=== PATIENT | female | born 1960 | race Hispanic/Latino ===

== ENCOUNTER 2018-09-26 13:11 | Emergency (ER) | payer MEDICARE ==
[2018-09-26 13:14] VITALS: BMI 31.1
[2018-09-26 13:46] VITALS: BP 165/87; PULSE 84; RESP 18; TEMP 98.6; O2SAT 99
--- NOTE | 2018-09-26 13:47 | ED PDOC ---
Arrival/HPI - General Historian: Patient - History of Present Illness Narrative History of Present Illness (Text): 09/26/18 13:42 Patient is a 58yo F with PMH of MS presenting to ED with anxiety for the past week. She reports feeling anxious with associated palpitations that are intermittent for 1 week. She denies previous history of psych issues. She reports poor quality of sleep over the past week due to loud construction near her house, which has been making her anxious. She denies chest pain, shortness of breath, loss of consciousness, blurry vision, sweating, or headache. She denies any previous cardiac history. She denies slurred speech, facial drooping, or focal weakness. She reports intermittent numbness in her hands b/l that she attributes to MS. Patient sees Dr. Levin, neurology, as her PMD. She denies fever, chills, nausea, vomiting, abdominal pain, diarrhea, or dysuria. She denies any suicidal or homicidal ideation. Time/Duration: 1 week Symptom Onset: Gradual Symptom Course: Intermittent <Steve Villalobos - Last Filed: 09/26/18 14:42> <Laure Kaba - Last Filed: 09/26/18 14:55> - General Chief Complaint: Anxiety Time Seen by Provider: 09/26/18 13:13 Past Medical History - Infectious Disease Hx of Infectious Diseases: None - Reproductive Menopause: Yes - Cardiac Hx Cardiac Disorders: No - Pulmonary Hx Respiratory Disorders: No - Neurological Hx Neurological Disorder: Yes Hx Multiple Sclerosis: Yes - HEENT Hx HEENT Disorder: No - Renal Hx Renal Disorder: No - Endocrine/Metabolic Hx Endocrine Disorders: No - Hematological/Oncological Hx Blood Disorders: No - Integumentary Hx Dermatological Disorder: No - Musculoskeletal/Rheumatological Hx Musculoskeletal Disorders: No - Gastrointestinal Hx Gastrointestinal Disorders: No - Genitourinary/Gynecological Hx Genitourinary Disorders: No - Psychiatric Hx Psychophysiologic Disorder: Yes Hx Anxiety: Yes Hx Substance Use: No - Surgical History Other/Comment: lump removed from back of neck - Anesthesia Hx Anesthesia: Yes Hx Anesthesia Reactions: No Hx Malignant Hyperthermia: No <Steve Villalobos - Last Filed: 09/26/18 14:42> Family/Social History Family/Social History: Diabetes, CAD/VA Smoking Status: Never Smoked Hx Alcohol Use: No Hx Substance Use: No <Steve Villalobos - Last Filed: 09/26/18 14:42> Allergies/Home Meds <Steve Villalobos - Last Filed: 09/26/18 14:42> <Laure Kaba - Last Filed: 09/26/18 14:55> Allergies/Adverse Reactions: Allergies No Known Allergies Allergy (Verified 09/26/18 13:13) Review of Systems - Review of Systems Constitutional: Normal. absent: Fatigue, Fevers Eyes: absent: Vision Changes ENT: Normal Respiratory: Normal. absent: SOB Cardiovascular: Palpitations. absent: Chest Pain, Syncope Gastrointestinal: Normal. absent: Abdominal Pain, Constipation, Diarrhea, Nausea, Vomiting Genitourinary Female: Normal. absent: Dysuria Musculoskeletal: Normal Skin: Normal Neurological: absent: Dizziness, Focal Weakness, Speech Changes, Facial Droop, Seizure Endocrine: absent: Diaphoresis Psychiatric: Anxiety. absent: Suicidal Ideation <Steve Villalobos - Last Filed: 09/26/18 14:42> Physical Exam Vital Signs Reviewed: Yes Temperature: Afebrile Blood Pressure: Hypertensive Pulse: Regular Respiratory Rate: Normal Appearance: Positive for: Well-Appearing, Non-Toxic, Comfortable Pain Distress: None Mental Status: Positive for: Alert and Oriented X 3 - Systems Exam Head: Present: Atraumatic, Normocephalic Pupils: Present: PERRL Extroacular Muscles: Present: EOMI Conjunctiva: Present: Normal Mouth: Present: Moist Mucous Membranes Neck: Present: Normal Range of Motion Respiratory/Chest: Present: Clear to Auscultation, Good Air Exchange. No: Respiratory Distress, Accessory Muscle Use, Wheezes, Rales, Rhonchi Cardiovascular: Present: Regular Rate and Rhythm, Normal S1, S2. No: Murmurs Abdomen: Present: Normal Bowel Sounds. No: Tenderness, Distention, Peritoneal Signs Upper Extremity: Present: Normal Inspection, Norm 2-Pt Discrimination. No: Cyanosis, Edema Lower Extremity: Present: Normal Inspection, Normal ROM. No: Edema Neurological: Present: GCS=15, CN II-XII Intact, Speech Normal, Motor Func Grossly Intact, Normal Sensory Function Skin: Present: Normal Color. No: Dry, Rashes Psychiatric: Present: Alert, Oriented x 3, Normal Insight, Normal Concentration, Anxious. No: Agitated, Depressed Mood, Suicidal Ideation, Homicidal Ideation <Steve Villalobos - Last Filed: 09/26/18 14:42> Vital Signs Temp Pulse Resp BP Pulse Ox 09/26/18 13:45 98.6 F 84 18 165/87 H 99 <Juan LuistrevaLaure Andreas - Last Filed: 09/26/18 14:55> Medical Decision Making ED Course and Treatment: 09/26/18 13:59 Patient evaluated by psych and cleared to follow up as outpatient as needed. 09/26/18 14:21 Labs reviewed, UDS +cannabinoids EKG NSR @79bpm - RAD Interpretation Radiology Orders: 09/26/18 13:39 CHEST PORTABLE [RAD] Stat <Steve Villalobos - Last Filed: 09/26/18 14:42> ED Course and Treatment: 09/26/18 14:15 Patient seen by resident and then evaluated by me. Complaining of "getting excited" due to construction in her apartment building. She reports that she has been smelling fumes and "inhaling dust" x weeks and this is giving her intermittent palpitations. Reports that the construction is making her very anxious. Reports that she does not have palpitations when away from the construction. Denies chest pain. Denies shortness of breath. EKG shows NSR at 79bpm with normal intervals and no st changes. Cxray negative. labs, including thyroid studies and troponin WNL. Aware of need to follow-up for hematuria. 09/26/18 14:53 - Lab Interpretations Lab Results: Total Bilirubin 0.4 mg/dL (0.2-1.3) 09/26/18 13:35 AST 29 U/L (14-36) 09/26/18 13:35 ALT 37 U/L (7-56) 09/26/18 13:35 Alkaline Phosphatase 72 U/L (38-126) 09/26/18 13:35 Total Protein 8.4 g/dL (5.8-8.3) H 09/26/18 13:35 Albumin 4.6 g/dL (3.0-4.8) 09/26/18 13:35 Globulin 3.9 gm/dL 09/26/18 13:35 Albumin/Globulin Ratio 1.2 (1.1-1.8) 09/26/18 13:35 Urine Color Yellow (YELLOW) 09/26/18 13:30 Urine Appearance Clear (CLEAR) 09/26/18 13:30 Urine pH 7.0 (4.7-8.0) 09/26/18 13:30 Ur Specific Ida <= 1.005 (1.005-1.035) 09/26/18 13:30 Urine Protein Negative mg/dL (<30 mg/dL) 09/26/18 13:30 Urine Glucose (UA) Negative mg/dL (NEGATIVE) 09/26/18 13:30 Urine Ketones Negative mg/dL (NEGATIVE) 09/26/18 13:30 Urine Blood Small (NEGATIVE) H 09/26/18 13:30 Urine Nitrate Negative (NEGATIVE) 09/26/18 13:30 Urine Bilirubin Negative (NEGATIVE) 09/26/18 13:30 Urine Urobilinogen 0.2 E.U./dL (<1 E.U./dL) 09/26/18 13:30 Ur Leukocyte Esterase Negative Nyasia/uL (NEGATIVE) 09/26/18 13:30 Urine RBC 0 - 2 /hpf (0-2) 09/26/18 13:30 Urine WBC 0 - 2 /hpf (0-6) 09/26/18 13:30 Ur Epithelial Cells 1 - 3 /hpf (0-5) 09/26/18 13:30 Urine Bacteria Small /hpf (NONE) 09/26/18 13:30 - RAD Interpretation Radiology Orders: 09/26/18 13:39 CHEST PORTABLE [RAD] Stat <Laure Kaba - Last Filed: 09/26/18 14:55> Disposition/Present on Arrival - Present on Arrival Any Indicators Present on Arrival: No History of DVT/PE: No History of Uncontrolled Diabetes: No Urinary Catheter: No History of Decub. Ulcer: No History Surgical Site Infection Following: None - Disposition Have Diagnosis and Disposition been Completed?: Yes Disposition Time: 14:44 <Steve Villalobos - Last Filed: 09/26/18 14:42> <Laure Kaba - Last Filed: 09/26/18 14:55> - Disposition Diagnosis: Hematuria, Anxiety Disposition: HOME/ ROUTINE Patient Problems: Current Active Problems Problem Status Onset Anxiety Acute Hematuria Acute Condition: STABLE Discharge Instructions (ExitCare): Blood in the Urine (Hematuria) in Adults, Anxiety, Adult (DC) Additional Instructions: Please follow up with your primary care physician Dr. Levin for further workup of your hematuria (blood in urine). If you wish to establish care at the [facility] at [place], a referral is provided for you. Please follow up with a credit intern for evaluation and treatment of your palpitations. If symptoms worsen, please return to the emergency department. Referrals: [facility] [place] [Outside] - Follow up with primary Forms: [facility] (Emirati)
[2018-09-26 13:53] LABS: URINE BILIRUBIN NEGATIVE (NEGATIVE); URINE BLOOD SMALL (NEGATIVE); URINE GLUCOSE (UA) NEGATIVE (NEGATIVE); URINE LEUKOCYTE ESTERASE NEGATIVE Leu/uL (NEGATIVE); URINE PROTEIN NEGATIVE mg/dL (<30 mg/dL); URINE UROBILINOGEN 0.2 E.U./dL (<1 E.U./dL)
[2018-09-26 13:55] LABS: URINE APPEARANCE CLEAR (CLEAR); URINE COLOR YELLOW (YELLOW)
[2018-09-26 13:56] LABS: BASO # 0.02 K/mm3 (0.0-2.0); BASO % 0.2 % (0.0-3.0); EOS # 0.1 (0.0-0.7); EOS % 0.9 % (1.5-5.0); HEMOGLOBIN 14.6 g/dL (12.0-16.0); LYMPH # 3.2 (1.2-3.4); LYMPH % 35.2 % (22.0-35.0); MEAN CELL VOLUME 88.6 fl (80.0-105.0); MEAN CORPUSCULAR HEMOGLOBIN 29.6 pg (25.0-35.0); MEAN CORPUSCULAR HGB CONC 33.4 g/dl (31.0-37.0); MEAN PLATELET VOLUME 9.2 fl (7.0-11.0); MONO # 0.6 (0.1-0.6); MONO % 6.8 % (1.0-6.0); RBC 4.93 10^6/uL (3.5-6.1); WHITE BLOOD COUNT 9.2 10^3/uL (4.5-11.0)
[2018-09-26 14:03] LABS: ALB/GLOB RATIO 1.2 (1.1-1.8); ALBUMIN 4.6 g/dL (3.0-4.8); ALT/SGPT 37 U/L (7-56); AST/SGOT 29 U/L (14-36); BLOOD UREA NITROGEN 9 mg/dL (7-21); CALCIUM 10.3 mg/dL (8.4-10.5); GFR NON-AFRICAN AMERICAN > 60
[2018-09-26 14:13] LABS: URINE BACTERIA SMALL /hpf; URINE RBC 0 - 2 /hpf (0-2); URINE WBC 0 - 2 /hpf (0-6)
[2018-09-26 14:15] LABS: BARBITURATES, UR NEGATIVE (NEGATIVE); BENZODIAZEPINES, UR NEGATIVE (NEGATIVE); OPIATES, UR NEGATIVE (NEGATIVE); PHENCYCLIDINE, UR NEGATIVE (NEGATIVE)
[2018-09-26 14:21] LABS: TROPONIN I < 0.01 ng/mL
[2018-09-26 14:28] LABS: FREE T4 1.39 ng/dL (0.78-2.19)
--- NOTE | 2018-09-26 14:52 | CARD ---
APPROVED REPORT Date of service: 09/26/2018 EKG Measurement Heart [id number] <Conclusion> Normal sinus rhythm Normal ECG
--- NOTE | 2018-09-26 15:05 | RAD ---
Date of service: 09/26/2018 HISTORY: palpitations COMPARISON: No prior. TECHNIQUE: 1 view obtained. FINDINGS: LUNGS: No active pulmonary disease. PLEURA: No significant pleural effusion identified, no pneumothorax apparent. CARDIOVASCULAR: No aortic atherosclerotic calcification present. Normal cardiac size. No pulmonary vascular congestion. OSSEOUS STRUCTURES: No significant abnormalities. VISUALIZED UPPER ABDOMEN: Normal. OTHER FINDINGS: None. IMPRESSION: No active disease.
== END 2018-09-26 15:24 | disposition home or self-care (01) ==
LOC: ED 13:11
DX: F41.9 Anxiety disorder, unspecified (principal); R31.9 Hematuria, unspecified; G35 Multiple sclerosis; Z82.49 Family history of ischemic heart disease and other diseases of the circulatory system; Z83.3 Family history of diabetes mellitus
CPT/HCPCS: 71045; 80053; 81001; 84439; 84443; 84484; 85025; 90791; 93005; 99282; G0480

== ENCOUNTER 2018-10-14 10:43 | Outpatient (CLI) | payer MEDICARE | END 2018-10-14 10:44 | disposition home or self-care (01) | LOC: RAD 10:43 ==